=== PATIENT | female | born 1985 | race Caucasian/White ===

== ENCOUNTER 2018-03-16 13:51 | Emergency (ER) | END 2018-03-16 17:04 | disposition home or self-care (01) ==

== ENCOUNTER 2018-09-04 05:47 | Emergency (ER) | payer BC ==
[~2018-09-04] VITALS: Ht 154.9 cm; Wt 67.4 kg
[~2018-09-04 05:47] MED LIST: AMOX500C2 PO; DENIES MEDS; HYDR-3498 PO; NAPR-985 PO; ONDA4TAB35 PO
[2018-09-04 05:48] VITALS: BP 131/64; PULSE 76; RESP 19; Ht 154.9 cm; Wt 67.4 kg
[2018-09-04] MEDS ORDERED: IPRATROPIUM (NEB) 0.5 MG/2.5 ML AMP NEB STA (06:19)
[2018-09-04] MEDS ORDERED: ALBUTEROL 0.083% (NEB) 2.5 MG/3 ML AMP NEB STA (06:19)
--- NOTE | 2018-09-04 06:33 | ERD ---
ER Documentation Chief Complaint Chief Complaint COUGH & CONGESTIONS [id number] HPI Patient is a 33-year-old female presents ER for concerns of cough and chest congestion for the last week. Patient denies previous history of lung disease. Patient states her cough appears productive however she is having difficulty expressing her sputum. Patient denies any chest pain or shortness of breath. Patient denies any fevers or chills. Patient states has been taking [id number] medications with minimal alleviation of symptoms. Patient denies any hemoptysis. Patient denies any recent travel. ROS All systems reviewed and are negative except as per history of present illness. Medications Home Meds Active Scripts Benzonatate* (Tessalon Perle*) 100 Mg Capsule, 100 MG PO Q8H PRN for COUGH, #20 CAP Prov:MICHAEL KOCH PA-C 09/04/18 Azithromycin* (Zithromax*) 250 Mg Tablet, 250 MG PO .ZPACK DIRECTED, #6 TAB TAKE 500 MG (2 TABS) THE FIRST DAY THEN 250 MG (1 TAB) DAYS 2-5 Prov:MICHAEL KOCH PA-C 09/04/18 Albuterol Sulfate* (Proair HFA*) 8.5 Gm Hfa.aer.ad, 2 PUFF INH Q6, #1 INHALER Prov:MICHAEL KOCH PA-C 09/04/18 Naproxen* (Naprosyn*) 500 Mg Tablet, 500 MG PO BID PRN for PAIN AND/OR INFLAMMATION, #30 TAB Prov:PATRICIA LUCAS PA-C 03/16/18 Ondansetron Hcl* (Zofran* ODT) 4 mg -ODT Tab.disper, 4 MG PO Q6 PRN for NAUSEA A ND/OR VOMITING, #10 TAB Prov:ESTHELA FINLEY PA-C 11/03/15 Hydrocodone Bit-Acetaminophen* ([place]*) 5-325 Mg Tab, 1 TAB PO Q6 PRN for PAIN, #7 TAB Prov:ESTHELA FINLEY PA-C 11/03/15 Amoxicillin* (Amoxicillin*) 500 Mg Cap, 500 MG PO TID for 7 Days, CAP Prov:ESTHELA FINLEY PA-C 11/03/15 Reported Medications [Denies Meds] No Conflict Check 06/23/10 Allergies Allergies: Coded Allergies: No Known Drug Allergy (Verified Allergy, Unknown, 03/16/18) PMhx/Soc History of Surgery: Yes (TUBAL LIGATION , APPENDECTOMY) Anesthesia Reaction: No Hx Neurological Disorder: No Hx Respiratory Disorders: Yes (ASTHMA) Hx Cardiac Disorders: No Hx Psychiatric Problems: No Hx Miscellaneous Medical Probl: No Hx Alcohol Use: No Hx Substance Use: No Hx Tobacco Use: No Smoking Status: Never smoker FmHx Family History: No diabetes Physical Exam Vitals Vital Signs Date Temp Pulse Resp B/P (MAP) Pulse Ox O2 O2 Flow FiO2 Time Delivery Rate 09/04/18 68 22 99 21 06:35 09/04/18 98.5 76 19 131/64 100 05:48 (86) Physical Exam GENERAL: Well-developed, well-nourished female. Appears in no acute distress. Speaking in full sentences HEAD: Normocephalic, atraumatic. EYES: Pupils are equally reactive bilaterally. EOMs grossly intact. No con junctival erythema. ENT: Bilateral TMS are within normal limits. Bilateral maxillary sinuses are tender to palpation. Moist mucous membranes. No uvula deviation. No kissing tonsils. NECK: Supple. No meningismus. Normal range of motion of the neck. LUNG: Bilateral expiratory wheezing noted. No abdominal retractions, no nasal flaring, no tripoding HEART: Regular rate and rhythm. No murmurs, rubs or gallops. EXTREMITIES: Equal pulses bilaterally. No peripheral clubbing, cyanosis or edema. No unilateral leg swelling. NEUROLOGIC: Alert and oriented. Moving all four extremities without any difficulty. Normal speech. Steady gait. SKIN: Normal color. Warm and dry. No rashes or lesions. Results 24 hrs Current Medications Medications Dose Sig/Luis Start Time Status Last (Trade) Ordered Route PRN Stop Time Admin Dose Reason Admin Albuterol 5 mg ONCE STAT 09/04/18 DC 09/04/18 (Proventil NEB 06:19 09/04/18 06:33 0.083% (Neb)) 06:21 Ipratropium 1 mg ONCE STAT 09/04/18 DC 09/04/18 [place] NEB 06:19 09/04/18 06:32 (Atrovent 06:21 0.02% (Neb)) 10 mg ONCE ONCE 09/04/18 DC 09/04/18 Dexamethasone IM 07:00 09/04/18 06:36 (Decadron) 07:01 Procedures/[facility] MEDICAL DECISION MAKING: This is a 32-year-old female presents ER for concerns of intermittent chest congestion and cough times 1 week.. Patient was afebrile. Patient was not hypoxic. Patient denied recent travel. Cardiac exam was normal. Lung exam revealed bilateral expiratory wheezing. Patient had no abdominal retractions, nasal flaring, no tripoding to suggest any signs of respiratory distress. Patient was given Decadron IM as well as albuterol treatment. Upon reexamination, patient improvement in wheezing. Patient stated that she felt better. Patient denies any fevers. I do not feel that emergent chest x-ray is indicated at this time. Patient will be empirically treated for concerns of acute bronchitis with wheezing. Patient also has some sinus tenderness and she will be treated for sinusitis as well. Low suspicion for deep space infection, sepsis, acute respiratory distress, acute coronary syndrome, pneumothorax, pneumonia, TB, influenza, pertussis, GERD, allergic rhinitis. Patient was nontoxic, non-opening prior to discharge. PRESCRIPTIONS: Albuterol, Raf Lee, Z-Maurice DISCHARGE: At this time, patient is stable for discharge and outpatient management. I have instructed the patient to follow-up with his/her primary care physician in 1-2 days. If symptoms persist, patient may need to see a specialist for further examinations and testing. I have instructed the patient to promptly return to the ER at any time for any new or worsening symptoms including increased increased pain, fever, nausea, vomiting, numbness, shortness of breath, weakness, ongoing wheezing, retractions or LOC. The patient and/or family expressed understanding of and agreement with this plan. All questions were answered. Home care instructions were provided. Disclaimer: Inadvertent spelling and grammatical errors are likely due to EHR/dictation software use and do not reflect on the overall quality of patient care. Also, please note that the electronic time recorded on this note does not necessarily reflect the actual time of the patient encounter. Departure Diagnosis: Primary Impression: Bronchitis Additional Impressions: Sinusitis Sinusitis location: unspecified location Chronicity: acute Recurrence: not specified as recurrent Qualified Codes: J01.90 - Acute sinusitis, unspecified Wheezing Condition: Fair Patient Instructions: Bronchitis With Wheezing (Adult) Referrals: COMM[facility]ITY CLIN[facility] YOU HAVE RECEIVED A MEDICAL SCREENING EXAM AND THE RESULTS INDICATE THAT YOU DO NOT HAVE A CONDITION THAT REQUIRES URGENT TREATMENT IN THE EMERGENCY DEPARTMENT. FURTHER EVALUATION AND TREATMENT OF YOUR CONDITION CAN WAIT UNTIL YOU ARE SEEN IN YOUR DOCTORS OFFICE WITHIN THE NEXT 1-2 DAYS. IT IS YOUR RESPONSIBILITY TO MAKE AN APPOINTMENT FOR FOLOW-UP CARE. IF YOU HAVE A PRIMARY DOCTOR --you should call your primary doctor and schedule an appointment IF YOU DO NOT HAVE A PRIMARY DOCTOR YOU CAN CALL OUR PHYSICIAN REFERRAL HOTLINE AT IF YOU CAN NOT AFFORD TO SEE A PHYSICIAN YOU CAN CHOSE FROM THE FOLLOWING [facility] [address] [facility] [address] [facility] [facility] [address] [facility] [address] [facility] [address] [facility] [facility] [address] [facility] YOU HAVE RECEIVED A MEDICAL SCREENING EXAM AND THE RESULTS INDICATE THAT YOU DO NOT HAVE A CONDITION THAT REQUIRES URGENT TREATMENT IN THE EMERGENCY DEPARTMENT. FURTHER EVALUATION AND TREATMENT OF YOUR CONDITION CAN WAIT UNTIL YOU ARE SEEN IN YOUR DOCTORS OFFICE WITHIN THE NEXT 1-2 DAYS. IT IS YOUR RESPONSIBILITY TO MAKE AN APPOINTMENT FOR FOLOW-UP CARE. IF YOU HAVE A PRIMARY DOCTOR --you should call your primary doctor and schedule and appointment IF YOU DO NOT HAVE A PRIMARY DOCTOR YOU CAN CALL OUR PHYSICIAN REFERRAL HOTLINE AT . IF YOU CAN NOT AFFORD TO SEE A PHYSICIAN YOU CAN CHOSE FROM THE FOLLOWING [facility] INSTITUTIONS: [facility] [address] [place] [address] [facility] [address] [place] [address] [facility] + [facility] [address] [place] [address] Additional Instructions: Call your primary care doctor TOMORROW for an appointment during the next 1-2 days.See the doctor sooner or return here if your condition worsens before your appointment time. MICHAEL KOCH PA-C Sep 04, 2018 06:33
[2018-09-04] MEDS ORDERED: DEXAMETHASONE 10 MG/ML 1 ML INJ IM ONE (07:00)
[2018-09-04] MEDS ORDERED: AZIT250T PO (07:24)
[2018-09-04] MEDS ORDERED: ALBU8.5H8 INH (07:24)
[2018-09-04] MEDS ORDERED: BENZ-6 PO (07:25)
== END 2018-09-04 07:39 | disposition home or self-care (01) ==
LOC: FTE 05:47
DX: J40 Bronchitis, not specified as acute or chronic (principal); J01.90 Acute sinusitis, unspecified
CPT/HCPCS: 94664; 96372; J1100; Z7502; Z7610

== ENCOUNTER 2018-09-06 14:42 | Emergency (ER) | payer BC ==
[~2018-09-06] VITALS: Wt 66.1 kg
[~2018-09-06 14:42] MED LIST changes: +ALBU8.5H8 INH; +AZIT250T PO; +BENZ-6 PO
[2018-09-06 14:43] VITALS: BP 120/68; PULSE 69; RESP 18
[2018-09-06] MEDS ORDERED: ACETAMINOPHEN 500 MG TAB PO STA (15:43)
[2018-09-06] MEDS ORDERED: ALBUTEROL 0.083% (NEB) 2.5 MG/3 ML AMP HHN STA (15:50)
[2018-09-06] MEDS ORDERED: IPRATROPIUM (NEB) 0.5 MG/2.5 ML AMP HHN ONE (16:00)
[2018-09-06] MEDS ORDERED: METHYLPREDNISOLONE 125 MG INJ IM ONE (16:00)
[2018-09-06] MEDS ORDERED: PRED20TA PO (17:40)
[2018-09-06] MEDS ORDERED: PROM5SYR2 PO (17:40)
--- NOTE | 2018-09-06 17:42 | ERD ---
ER Documentation Chief Complaint Chief Complaint SEEN HERE 0N 7TH C/O SAME COUGH HPI 33-year-old female presents with a history of asthma has been coughing for the last few days. Given Decadron IM, is using Ventolin and was prescribed Zithromax. She has persistent coughing spells at night and wheezing. She denies chest pain, vomiting, abdominal pain. Denies calf swelling, hemoptysis, syncope. ROS All systems reviewed and are negative except as per history of present illness. Medications Home Meds Active Scripts Promethazine HCl/Codeine (Prometh-Codein 6.25-10 mg/5 ml) 5 Ml Syrup, 5 ML PO BID for 5 Days 4 oz Prov:KISHA JOHNSON MD 09/06/18 Prednisone* (Prednisone*) 20 Mg Tab, 60 MG PO DAILY for 6 Days, TAB 60 mg by mouth for 2 days then 40 mg by mouth for 3 days Prov:KISHA JOHNSON MD 09/06/18 Benzonatate* (Tessalon Perle*) 100 Mg Capsule, 100 MG PO Q8H PRN for COUGH, #20 CAP Prov:MICHAEL KOCH PA-C 09/04/18 Azithromycin* (Zithromax*) 250 Mg Tablet, 250 MG PO .ZPACK DIRECTED, #6 TAB TAKE 500 MG (2 TABS) THE FIRST DAY THEN 250 MG (1 TAB) DAYS 2-5 Prov:MICHAEL KOCH PA-C 09/04/18 Albuterol Sulfate* (Proair HFA*) 8.5 Gm Hfa.aer.ad, 2 PUFF INH Q6, #1 INHALER Prov:MICHAEL KOCH PA-C 09/04/18 Naproxen* (Naprosyn*) 500 Mg Tablet, 500 MG PO BID PRN for PAIN AND/OR INFLAMMATION, #30 TAB Prov:PATRICIA LUCAS PA-C 03/16/18 Ondansetron Hcl* (Zofran* ODT) 4 mg -ODT Tab.disper, 4 MG PO Q6 PRN for NAUSEA AND/OR VOMITING, #10 TAB Prov:ESTHELA FINLEY PA-C 11/03/15 Hydrocodone Bit-Acetaminophen* ([place]*) 5-325 Mg Tab, 1 TAB PO Q6 PRN for PAIN, #7 TAB Prov:ESTHELA FINLEY PA-C 11/03/15 Amoxicillin* (Amoxicillin*) 500 Mg Cap, 500 MG PO TID for 7 Days, CAP Prov:ESTHELA FINLEY PA-C 11/03/15 Reported Medications [Denies Meds] No Conflict Check 06/23/10 Allergies Allergies: Coded Allergies: No Known Drug Allergy (Verified Allergy, Unknown, 09/06/18) PMhx/Soc History of Surgery: Yes (TUBAL LIGATION , APPENDECTOMY) Anesthesia Reaction: No Hx Neurological Disorder: No Hx Respiratory Disorders: Yes (ASTHMA) Hx Cardiac Disorders: No Hx Psychiatric Problems: No Hx Miscellaneous Medical Probl: No Hx Alcohol Use: No Hx Substance Use: No Hx Tobacco Use: No Smoking Status: Never smoker Physical Exam Vitals Vital Signs Date Temp Pulse Resp B/P (MAP) Pulse Ox O2 O2 Flow FiO2 Time Delivery Rate 09/06/18 61 18 98 21 16:35 09/06/18 98.1 69 18 120/68 99 14:43 (85) Physical Exam Const: No acute distress Head: Atraumatic Eyes: Normal Conjunctiva ENT: Normal External Ears, Nose and Mouth. TMs and oropharynx normal. Neck: Full range of motion. No meningismus. Resp: Clear to auscultation bilaterally. Diffuse wheezing without rales or retractions. Cardio: Regular rate and rhythm, no murmurs Abd: Soft, non tender, non distended. Normal bowel sounds Skin: No petechiae or rashes Back: No midline or flank tenderness Ext: No cyanosis, or edema Neur: Awake and alert Psych: Normal Mood and Affect Results 24 hrs Current Medications Medications Dose Sig/Luis Start Time Status Last (Trade) Ordered Route PRN Stop Time Admin Dose Reason Admin 500 mg ONCE STAT 09/06/18 DC Acetaminophen PO 15:43 09/06/18 (Tylenol 15:46 Tab) 125 mg ONCE ONCE 09/06/18 DC 09/06/18 Methylprednis IM 16:00 09/06/18 16:12 olone Sodium 16:01 Succinate (Solu-Medrol) Albuterol 5 mg ONCE STAT 09/06/18 DC 09/06/18 (Proventil HHN 15:50 09/06/18 16:35 0.083% (Neb)) 15:52 Ipratropium 0.5 mg ONCE ONCE 09/06/18 DC 09/06/18 [place] HHN 16:00 09/06/18 16:35 (Atrovent 16:01 0.02% (Neb)) Procedures/MDM Given albuterol treatment. Patient was given Solu-Medrol 125 mg IM. Chest X-ray 1V Interpreted by me: Soft Tissue: No acute abnormalities Bones: No acute abnormalities Mediastinum/Cardiac Silhouette/Lungs: No acute abnormalities. Impression- normal 1 view chest x-ray Since with persistent cough and wheezing with URI symptoms. She has evidence of hypoxemia, rest or distress or pneumonia. We will give a short prednisone ta per, medication for cough, instructions continue Ventolin and Zithromax as prescribed although this may be lingering viral illness. The patient was stable with no new complaints during the ER course. Clinically, there is no current evidence to suggest meningitis, sepsis, acute abdomen, pneumonia, stroke, acute coronary syndrome, pulmonary embolism, aortic dissection or any other emergent condition appearing to require further evaluation or hospitalization. Patient counseled regarding my diagnostic impression and care plan. Prior to discharge all questions answered. Pt agrees with treatment plan and understands strict return precautions. Pt is instructed to follow up with primary care provider within 24-48 hours. Precautionary instructions provided including instructions to return to the ER if not improving or for any worsening or changing symptoms or concerns. Departure Diagnosis: Primary Impression: URI, acute Additional Impression: Asthma Asthma severity: unspecified severity Asthma persistence: unspecified Asthma complication type: unspecified Qualified Codes: J45.909 - Unspecified asthma, uncomplicated Condition: Stable Patient Instructions: Asthma, Acute (Adult) Additional Instructions: Continue antibiotics. Recheck for new or worsening symptoms with primary care doctor. X-ray normal. KISHA JOHNSON MD Sep 06, 2018 17:42
== END 2018-09-06 18:36 | disposition home or self-care (01) ==
LOC: FTE 14:42
DX: J06.9 Acute upper respiratory infection, unspecified (principal); J45.901 Unspecified asthma with (acute) exacerbation
CPT/HCPCS: 71045; 94664; 96372; J2930; Z7502; Z7610